=== PATIENT | male | born 1975 | race African-American/Black ===

== ENCOUNTER 2024-08-28 15:09 | Inpatient (IN) | payer SELFPAY ==
[2024-08-28 15:54] LABS: #Basophils 0.04 10x3/uL (0.0-0.2); %Basophils 0.4 % (0.0-1.0); %Eosinophils 1.6 % (0.0-10.0); %Lymphocytes 46.4 % (21.0-51.0); %Monocytes 6.3 % (0.0-10.0); Hemoglobin 14.1 g/dL (14.0-18.0); Mean Corpuscular HGB CONC 33.6 g/dL (32.0-36.0); Mean Corpuscular Hemoglobin 29.7 pg (27.0-31.0); Mean Corpuscular Volume 88.4 fL (78.0-98.0); Mean Platelet Volume 9.1 fL (7.4-10.4); Platelet Count 307 10x3/uL (130-400); RBC Distribution Width 13.1 % (11.5-14.5); Red Blood Cell (RBC) Count 4.75 mill/uL (4.70-6.10)
[2024-08-28 16:12] LABS: ALT (SGPT) 11 U/L (8-55); AST (SGOT) 17 U/L (5-34); Albumin 3.6 g/dL (3.5-5.0); Alkaline Phosphatase 75 U/L (40-110); Anion Gap 14 mmol/L (10-20); BUN (Urea Nitrogen) 7 mg/dL (8.9-20.6); Bilirubin, Total 0.4 mg/dL (0.2-1.2); Calc. Creatinine Clearance 0 mL/min (70-130); Carbon Dioxide 26 mmol/L (22-29); Chloride 99 mmol/L (98-107); Estimated GFR 83; Globulin 3.2 g/dL (2.4-3.5); Glucose 176 mg/dL (70-105); Protein, Total 6.8 g/dL (6.0-8.3); Sodium 135 mmol/L (136-145)
[2024-08-28 16:17] LABS: Troponin I Less than 0.010 ng/mL (< 0.028)
[2024-08-28] MEDS ORDERED: diphenhydrAMINE 50 MG/ML VIAL ONE (17:32)
[2024-08-28] MEDS ORDERED: Metoclopramide HCl 10 MG (2 mL) VIAL ONE (17:32)
[2024-08-28] MEDS ORDERED: Acetaminophen 650 MG Suppository PR PRN (19:58)
[2024-08-28] MEDS ORDERED: Acetaminophen 325 MG TAB PO PRN (19:58)
[2024-08-28] MEDS ORDERED: traMADol HCl 50 MG TAB PO PRN ×2 (19:58)
[2024-08-28] MEDS ORDERED: Ondansetron PF 4 MG/2 ML Vial IVP PRN (19:58)
[2024-08-28] MEDS ORDERED: Ondansetron ODT 4 MG TAB PO PRN (19:58)
[2024-08-28] MEDS ORDERED: Senokot S 8.6-50 MG TAB PO PRN (19:58)
[2024-08-28] MEDS ORDERED: Dextrose 5% in Water 1,000 ML IV PRN (20:14)
[2024-08-28] MEDS ORDERED: Dextrose 50% Abboject 50 ML SYRINGE SLOW IVP PRN (20:14)
[2024-08-28] MEDS ORDERED: Glucagon 1 MG/ML KIT IM PRN (20:14)
[2024-08-28 21:04] LABS: Hemoglobin A1c 9.3 % (4.0-6.0)
[2024-08-28] MEDS: Atorvastatin Calcium 40 MG TAB PO SCH (21:25)
[2024-08-29 01:47] VITALS: BMI 36.7
[2024-08-29 03:47] LABS: #Basophils 0.04 10x3/uL (0.0-0.2); %Basophils 0.3 % (0.0-1.0); %Eosinophils 2.4 % (0.0-10.0); %Lymphocytes 47.7 % (21.0-51.0); %Monocytes 6.7 % (0.0-10.0); %Neutrophils 42.7 % (42.0-75.0); Hematocrit 40.3 % (42.0-52.0); Hemoglobin 13.8 g/dL (14.0-18.0); Mean Corpuscular HGB CONC 34.2 g/dL (32.0-36.0); Mean Corpuscular Hemoglobin 29.2 pg (27.0-31.0); Mean Corpuscular Volume 85.4 fL (78.0-98.0); Mean Platelet Volume 9.6 fL (7.4-10.4); Platelet Count 303 10x3/uL (130-400); RBC Distribution Width 13.1 % (11.5-14.5); Red Blood Cell (RBC) Count 4.72 mill/uL (4.70-6.10)
[2024-08-29 04:11] LABS: Anion Gap 14 mmol/L (10-20); BUN (Urea Nitrogen) 10 mg/dL (8.9-20.6); Calc. Creatinine Clearance 123 mL/min (70-130); Calcium 8.5 mg/dL (7.8-10.44); Carbon Dioxide 22 mmol/L (22-29); Cardiac Risk 7.2 (Less than 4.5); Chloride 102 mmol/L (98-107); Cholesterol 179 mg/dl (< 200 Desired); Estimated GFR 89; Glucose 140 mg/dL (70-105); HDL Cholesterol 25 mg/dL (>60 Neg Risk); Potassium 3.3 mmol/L (3.5-5.1); Sodium 135 mmol/L (136-145); Triglycerides 405 mg/dL (Less than 150)
[2024-08-29] MEDS: Aspirin 81 mg Enteric Coated Tablet PO SCH (08:37)
[2024-08-29] MEDS: Enoxaparin 40 MG (0.4 mL) SYRINGE SC SCH (08:37)
[2024-08-29] MEDS ORDERED: Electrolyte Replacement Protocol 1 EACH FS SCH (09:45)
[2024-08-29] MEDS ORDERED: Electrolyte Replacement Protocol FS PRN (09:45)
[2024-08-29] MEDS: Potassium Chloride 20 MEQ TAB PO SCH ×2 (10:41→21:38)
[2024-08-29 16:00] LABS: Potassium 3.5 mmol/L (3.5-5.1)
[2024-08-29] MEDS: Insulin Glargine 30 UNITS/0.3 ML VIAL SC SCH (21:41)
[2024-08-30 08:25] LABS: INR-International Normal Ratio 1.1; Prothrombin Time 14.4 sec (12.0-14.7)
[2024-08-30 08:33] LABS: D-Dimer Test Less than 0.27 mcg/mL (0.27-0.43)
[2024-08-30] MEDS: Insulin Lispro 100 UNIT/ML 10 ML VIAL SC PRN (17:31)
[2024-08-31] MEDS: Lisinopril 10 MG TAB PO SCH (09:51)
[2024-08-31] MEDS: Pantoprazole DR 40 MG TAB PO SCH (09:52)
[2024-08-31 12:06] LABS: Cardiolipin IgA Ab 2.3 APL-U/mL (<14 Negative); Cardiolipin IgG Ab 1.4 GPL-U/mL (<10 Negative); Cardiolipin IgM Ab Less than 0.9 MPL-U/mL (<10 Negative); EliA APS New Method **** NEW METHOD ****
[2024-08-31 16:18] VITALS: BP 125/75; TEMP 97.9
== END 2024-08-31 19:00 | disposition left against medical advice (07) | DRG 64 ==
LOC: ERS 15:09 → SUATTDRO 15:09 → 2SE 19:25 → OBSVTOIN 08-29 09:20
PROVIDERS: ADMIT Family Medicine; ATTEND Family Medicine
PROC: 4A00X4Z Measurement of Central Nervous Electrical Activity, External Approach (ICD-10-PCS; principal; 2024-08-30)
DX: I63.9 Cerebral infarction, unspecified (principal); G93.6 Cerebral edema; G81.91 Hemiplegia, unspecified affecting right dominant side; I10 Essential (primary) hypertension; K21.9 Gastro-esophageal reflux disease without esophagitis; Z79.82 Long term (current) use of aspirin; E11.65 Type 2 diabetes mellitus with hyperglycemia; Z91.148 Patient's other noncompliance with medication regimen for other reason; Z79.899 Other long term (current) drug therapy; E78.00 Pure hypercholesterolemia, unspecified
CPT/HCPCS: 36415; 36416; 70450; 70551; 80048; 80053; 80061; 83036; 83090; 84484; 85025; 85300; 85303; 85306; 85307; 85598; 85610; 85730; 86147; 93005; 93306; 95700; 95711; 95957; 96372; 96374; 96375; G0378; J1200; J1650; J1815; J2765

== ENCOUNTER 2024-10-22 16:17 | Inpatient (IN) | payer OTHER ==
[2024-10-22] MEDS ORDERED: Propofol 1,000 MG/100 ML VIAL IV ONE (17:15)
[2024-10-22 17:29] LABS: Actual Bicarbonate (HCO3v) 20.2 mEq/L (22-28); Analyzer IN Cardio ER; Base Excess -3.7 mEq/L (-2.0 to +3.0); Calcium, Ionized (venous) 0.99 mmol/L (1.16-1.32); Chloride (VBG) 98 mmol/L (98-106); Hematocrit-VBG 46 % (42.0-52.0); Hemoglobin (Hb) 15.6 g/dL (13.1-17.2); Sodium 133 mmol/L (133-146); pH (venous) 7.396 (7.32-7.43)
[2024-10-22 17:35] LABS: Potassium (VBG) 6.94 mmol/L (3.70-5.30)
[2024-10-22] MEDS ORDERED: LORazepam 2 MG/ML SYR.(CARPUJECT) ONE (17:52)
[2024-10-22] MEDS ORDERED: Fentanyl CADD 100 ML IV SCH (18:00)
[2024-10-22 18:50] LABS: Bacteria/HPF None Seen HPF (None Seen); Bilirubin Negative (Negative); Blood, Urine 3+ (Negative); CAUTI Indications for Culture Alt mental st,lethar; Clarity Clear (Clear); Glucose, Urine (Dipstick) 300 mg/dL (Negative); Ketone, Urine 60 mg/dL (Negative); Leukocyte Negative Leu/uL (Negative); Nitrite Negative (Negative); Protein, Urine (Dipstick) 100 mg/dL (Neg-Trace); Squamous Epithelial None Seen HPF (0-3); Urobilinogen Normal mg/dL (Less than 2); WBC/HPF 0-3 HPF (0-3); pH, Urine 6.5 (5.0-9.0)
[2024-10-22 18:51] LABS: Specific Gravity, Urine Greater than 1.060 (1.002-1.036)
[2024-10-22 18:52] LABS: Urine Culture Reflex No No
[2024-10-22] MEDS ORDERED: Bisacodyl 10 MG SUPP PR PRN (19:03)
[2024-10-22] MEDS ORDERED: hydrALAZINE 20 MG/ML VIAL SLOW IVP PRN (19:03)
[2024-10-22] MEDS ORDERED: Senokot S 8.6-50 MG TAB PER TUBE PRN (19:03)
[2024-10-22] MEDS ORDERED: Communication Order-Pharmacy FS SCH (19:03)
[2024-10-22] MEDS ORDERED: niCARdipine 25 MG in Sodium Chloride 0.9% 250 ML 250 ML IVPB PRN (19:03)
[2024-10-22] MEDS ORDERED: Milk Of Magnesia 30 ML UDCUP PER TUBE PRN (19:14)
[2024-10-22] MEDS ORDERED: Ventilator Sedation Protocol 1 EACH FS SCH (19:26)
[2024-10-22] MEDS ORDERED: DISCONTINUE PREVIOUS NARCOTIC PAIN MEDICATIONS AND BENZODIAZEPINES FS SCH (19:45)
[2024-10-22] MEDS ORDERED: Propofol BOLUS 1,000 MG/100 ML VIAL IV PRN (19:45)
[2024-10-22] MEDS ORDERED: Fentanyl BOLUS 250 ML IVPB PRN (19:45)
[2024-10-22] MEDS ORDERED: Dextrose 50% Abboject 50 ML SYRINGE SLOW IVP PRN (20:12)
[2024-10-22] MEDS ORDERED: Dextrose 5% in Water 1,000 ML IV PRN (20:12)
[2024-10-22] MEDS ORDERED: Glucagon 1 MG/ML KIT IM PRN (20:12)
[2024-10-22] MEDS ORDERED: Electrolyte Replacement Protocol 1 EACH FS SCH (20:13)
[2024-10-22 20:33] LABS: Actual Bicarbonate (HCO3a) 23.8 mEq/L (22-28); Analyzer IN Cardio ER; Base Excess (BEa) -3.3 mEq/L (-2.0 to +3.0); CO2 Tension 49.9 mmHg (35.0-45.0); Calcium, Ionized (arterial) 1.23 mmol/L (1.12-1.30); Carboxyhemoglobin (COHb) 0.4 gm% (0.0-3.0); Hematocrit-ABG 48 % (42.0-52.0); Hemoglobin (Hb) 16.2 g/dL (14.0-18.0); O2 Tension (PaO2), arterial 163.4 mmHg (80.0-100.0); Potassium - ABG Lab 4.76 mmol/L (3.70-5.30); pH, Arterial 7.296 (7.35-7.45)
[2024-10-22 20:34] LABS: Puncture Site Left Radial artery
[2024-10-22 20:35] LABS: ALV-art Gradient 130.725 mmHg (0-20)
[2024-10-22] MEDS: Rocuronium Bromide 10 MG/ML (10ML VIAL) IVP SCH (21:15)
[2024-10-22] MEDS: Etomidate 40 MG (20 mL) VIAL IVP SCH (21:15)
[2024-10-22] MEDS: Sodium Chloride 0.9% 1,000 ML IV SCH (21:58)
[2024-10-22] MEDS: Famotidine/PF 20 mg/2ml Vial SLOW IVP SCH (22:06)
[2024-10-22] MEDS: Atorvastatin Calcium 40 MG TAB PER TUBE SCH (22:06)
[2024-10-23] MEDS: Propofol 1,000 MG/100 ML VIAL IV PRN (04:34)
[2024-10-23 08:02] LABS: Actual Bicarbonate (HCO3a) 21.5 mEq/L (22-28); Base Excess (BEa) -0.8 mEq/L (-2.0 to +3.0); CO2 Tension 29.7 mmHg (35.0-45.0); Calcium, Ionized (arterial) 1.17 mmol/L (1.12-1.30); Carboxyhemoglobin (COHb) 0.6 gm% (0.0-3.0); Hematocrit-ABG 45 % (42.0-52.0); Hemoglobin (Hb) 15.3 g/dL (14.0-18.0); O2 Tension (PaO2), arterial 125.6 mmHg (80.0-100.0); Potassium - ABG Lab 3.41 mmol/L (3.70-5.30); pH, Arterial 7.478 (7.35-7.45)
[2024-10-23 08:03] LABS: Puncture Site Right Radial artery
[2024-10-23 08:04] LABS: ALV-art Gradient 122.475 mmHg (0-20)
[2024-10-23] MEDS ORDERED: Aspirin 300 MG Suppository PR SCH (09:00)
[2024-10-23] MEDS: Fentanyl CADD 100 ML IV SCH (09:00)
[2024-10-23] MEDS: Lorazepam 2 MG/ML VIAL SLOW IVP PRN (09:25)
[2024-10-23 16:44] LABS: #Basophils 0.03 10x3/uL (0.0-0.2); %Basophils 0.3 % (0.0-1.0); %Eosinophils 0.9 % (0.0-10.0); %Lymphocytes 26.4 % (21.0-51.0); %Monocytes 9.5 % (0.0-10.0); %Neutrophils 62.7 % (42.0-75.0); Hematocrit 46.5 % (42.0-52.0); Hemoglobin 15.8 g/dL (14.0-18.0); Mean Corpuscular Hemoglobin 29.2 pg (27.0-31.0); Mean Platelet Volume 9.1 fL (7.4-10.4); Platelet Count 277 10x3/uL (130-400); RBC Distribution Width 13.4 % (11.5-14.5); Red Blood Cell (RBC) Count 5.41 mill/uL (4.70-6.10)
[2024-10-23 17:09] LABS: ALT (SGPT) 106 U/L (8-55); AST (SGOT) 241 U/L (5-34); Albumin 3.8 g/dL (3.5-5.0); Alkaline Phosphatase 84 U/L (40-110); Anion Gap 18 mmol/L (10-20); BUN (Urea Nitrogen) 15 mg/dL (8.9-20.6); Bilirubin, Total 0.4 mg/dL (0.2-1.2); Calc. Creatinine Clearance 90 mL/min (70-130); Calcium 9.5 mg/dL (7.8-10.44); Carbon Dioxide 22 mmol/L (22-29); Cardiac Risk 4.1 (Less than 4.5); Chloride 101 mmol/L (98-107); Cholesterol 134 mg/dl (< 200 Desired); Estimated GFR 67; Globulin 3.7 g/dL (2.4-3.5); Glucose 147 mg/dL (70-105); HDL Cholesterol 33 mg/dL (>60 Neg Risk); LDL Cholesterol, Calculated 46 mg/dL; Potassium 3.4 mmol/L (3.5-5.1); Protein, Total 7.5 g/dL (6.0-8.3); Sodium 138 mmol/L (136-145); Triglycerides 275 mg/dL (Less than 150)
[2024-10-23 17:16] LABS: Lactic Acid 4.04 mmol/L (0.5-2.2)
[2024-10-23 17:28] LABS: ALT (SGPT) 109 U/L (8-55); AST (SGOT) 263 U/L (5-34); Albumin 4.2 g/dL (3.5-5.0); Alkaline Phosphatase 95 U/L (40-110); Anion Gap 22 mmol/L (10-20); BUN (Urea Nitrogen) 15 mg/dL (8.9-20.6); Bilirubin, Total 0.4 mg/dL (0.2-1.2); Calc. Creatinine Clearance 97 mL/min (70-130); Calcium 9.7 mg/dL (7.8-10.44); Carbon Dioxide 20 mmol/L (22-29); Chloride 100 mmol/L (98-107); Estimated GFR 73; Globulin 4.1 g/dL (2.4-3.5); Glucose 143 mg/dL (70-105); Potassium 3.6 mmol/L (3.5-5.1); Protein, Total 8.3 g/dL (6.0-8.3); Sodium 138 mmol/L (136-145)
[2024-10-23 17:30] LABS: Troponin I Less than 0.010 ng/mL (< 0.028)
[2024-10-23 18:12] LABS: Prothrombin Time 13.6 sec (12.0-14.7)
[2024-10-23 18:14] LABS: PTT 21.7 sec (22.9-36.1)
[2024-10-23] MEDS: Potassium Chloride 20 MEQ in Premix 1 BAG IVPB SCH (21:06)
[2024-10-23] MEDS: Aspirin 300 MG Suppository PR SCH (21:07)
[2024-10-23] MEDS: Enoxaparin 40 MG (0.4 mL) SYRINGE SC SCH (21:07)
[2024-10-23] MEDS: Acetaminophen 650 MG Suppository PR PRN (21:07)
[2024-10-24 05:28] LABS: #Basophils 0.06 10x3/uL (0.0-0.2); %Basophils 0.5 % (0.0-1.0); %Eosinophils 0.4 % (0.0-10.0); %Lymphocytes 24.8 % (21.0-51.0); %Monocytes 18.9 % (0.0-10.0); %Neutrophils 54.9 % (42.0-75.0); Hematocrit 44.4 % (42.0-52.0); Hemoglobin 14.6 g/dL (14.0-18.0); Mean Corpuscular HGB CONC 32.9 g/dL (32.0-36.0); Mean Corpuscular Hemoglobin 29.4 pg (27.0-31.0); Mean Corpuscular Volume 89.3 fL (78.0-98.0); Mean Platelet Volume 9.8 fL (7.4-10.4); Platelet Count 210 10x3/uL (130-400); RBC Distribution Width 13.5 % (11.5-14.5); Red Blood Cell (RBC) Count 4.97 mill/uL (4.70-6.10)
[2024-10-24 06:34] LABS: ALT (SGPT) 79 U/L (8-55); AST (SGOT) 155 U/L (5-34); Albumin 3.5 g/dL (3.5-5.0); Anion Gap 19 mmol/L (10-20); BUN (Urea Nitrogen) 16 mg/dL (8.9-20.6); Bilirubin, Total 0.5 mg/dL (0.2-1.2); Calc. Creatinine Clearance 87 mL/min (70-130); Calcium 9.4 mg/dL (7.8-10.44); Carbon Dioxide 21 mmol/L (22-29); Chloride 103 mmol/L (98-107); Estimated GFR 67; Globulin 3.7 g/dL (2.4-3.5); Glucose 134 mg/dL (70-105); Potassium 4.3 mmol/L (3.5-5.1); Protein, Total 7.2 g/dL (6.0-8.3); Sodium 139 mmol/L (136-145)
[2024-10-24 07:20] LABS: Alkaline Phosphatase 84 U/L (40-110)
[2024-10-24] MEDS: Acetaminophen 325 MG TAB PER TUBE PRN (14:59)
[2024-10-24] MEDS: Hyaluronidase, Human Recomb. 150 UNITS/ML VIAL SC SCH (17:31)
[2024-10-24] MEDS: Lactated Ringer's 1,000 ML IV SCH (18:08)
[2024-10-24] MEDS: Insulin Lispro 100 UNIT/ML 10 ML VIAL SC PRN (23:00)
[2024-10-25] MEDS: Scopolamine 1 mg/72 hour Patch TD SCH (05:12)
[2024-10-25 05:23] LABS: Hemoglobin A1c 8.3 % (4.0-6.0)
[2024-10-25 05:38] LABS: Anion Gap 15 mmol/L (10-20); BUN (Urea Nitrogen) 15 mg/dL (8.9-20.6); Calc. Creatinine Clearance 105 mL/min (70-130); Calcium 9.4 mg/dL (7.8-10.44); Carbon Dioxide 25 mmol/L (22-29); Chloride 100 mmol/L (98-107); Estimated GFR 84; Glucose 239 mg/dL (70-105); Potassium 4.1 mmol/L (3.5-5.1); Sodium 136 mmol/L (136-145)
[2024-10-25 05:47] LABS: #Basophils 0.04 10x3/uL (0.0-0.2); %Basophils 0.3 % (0.0-1.0); %Eosinophils 0.4 % (0.0-10.0); %Lymphocytes 13.6 % (21.0-51.0); %Monocytes 10.4 % (0.0-10.0); %Neutrophils 74.9 % (42.0-75.0); Hematocrit 40.2 % (42.0-52.0); Hemoglobin 13.8 g/dL (14.0-18.0); Mean Corpuscular HGB CONC 34.3 g/dL (32.0-36.0); Mean Corpuscular Hemoglobin 29.7 pg (27.0-31.0); Mean Corpuscular Volume 86.6 fL (78.0-98.0); Mean Platelet Volume 10.9 fL (7.4-10.4); Platelet Count 281 10x3/uL (130-400); RBC Distribution Width 13.5 % (11.5-14.5); Red Blood Cell (RBC) Count 4.64 mill/uL (4.70-6.10)
[2024-10-25] MEDS ORDERED: Electrolyte Replacement Protocol FS PRN (07:30)
[2024-10-25] MEDS: Insulin Glargine 30 UNITS/0.3 ML VIAL SC SCH (09:17)
[2024-10-26] MEDS: Vecuronium 10 MG VIAL IVP SCH (00:19)
[2024-10-26 04:56] LABS: #Basophils 0.03 10x3/uL (0.0-0.2); %Basophils 0.2 % (0.0-1.0); %Eosinophils 1.2 % (0.0-10.0); %Lymphocytes 14.1 % (21.0-51.0); %Monocytes 11.2 % (0.0-10.0); %Neutrophils 72.8 % (42.0-75.0); Hematocrit 38.1 % (42.0-52.0); Hemoglobin 12.9 g/dL (14.0-18.0); Mean Corpuscular HGB CONC 33.9 g/dL (32.0-36.0); Mean Corpuscular Hemoglobin 29.5 pg (27.0-31.0); Mean Corpuscular Volume 87.2 fL (78.0-98.0); Mean Platelet Volume 11.1 fL (7.4-10.4); Platelet Count 292 10x3/uL (130-400); RBC Distribution Width 13.4 % (11.5-14.5); Red Blood Cell (RBC) Count 4.37 mill/uL (4.70-6.10)
[2024-10-26 05:10] LABS: Anion Gap 14 mmol/L (10-20); BUN (Urea Nitrogen) 11 mg/dL (8.9-20.6); Calc. Creatinine Clearance 113 mL/min (70-130); Calcium 9.6 mg/dL (7.8-10.44); Carbon Dioxide 26 mmol/L (22-29); Chloride 99 mmol/L (98-107); Estimated GFR 91; Glucose 210 mg/dL (70-105); Potassium 4.1 mmol/L (3.5-5.1); Sodium 135 mmol/L (136-145)
[2024-10-26] MEDS: Morphine 2 MG/ML VIAL SLOW IVP PRN (07:37)
[2024-10-26] MEDS: Vecuronium 10 MG VIAL ONE (12:10)
[2024-10-26] MEDS: Vecuronium 10 MG VIAL IV SCH (12:10)
[2024-10-26] MEDS: Vecuronium 10 MG VIAL IV PRN (16:49)
[2024-10-26] MEDS: Sterile Water 10 ML ONE (22:31)
[2024-10-27] MEDS: Water For Inject, Bacteriostat 30 ML ONE (03:32)
[2024-10-27 04:22] LABS: #Basophils 0.04 10x3/uL (0.0-0.2); %Basophils 0.3 % (0.0-1.0); %Eosinophils 2.7 % (0.0-10.0); %Lymphocytes 17.7 % (21.0-51.0); %Neutrophils 65.3 % (42.0-75.0); Hematocrit 39.9 % (42.0-52.0); Hemoglobin 13.3 g/dL (14.0-18.0); Mean Corpuscular HGB CONC 33.3 g/dL (32.0-36.0); Mean Corpuscular Hemoglobin 28.9 pg (27.0-31.0); Mean Corpuscular Volume 86.7 fL (78.0-98.0); Mean Platelet Volume 9.9 fL (7.4-10.4); Platelet Count 315 10x3/uL (130-400); RBC Distribution Width 13.4 % (11.5-14.5)
[2024-10-27 04:54] LABS: Anion Gap 16 mmol/L (10-20); BUN (Urea Nitrogen) 16 mg/dL (8.9-20.6); Calc. Creatinine Clearance 147 mL/min (70-130); Calcium 9.1 mg/dL (7.8-10.44); Carbon Dioxide 26 mmol/L (22-29); Chloride 98 mmol/L (98-107); Estimated GFR 109; Glucose 141 mg/dL (70-105); Sodium 136 mmol/L (136-145)
[2024-10-27] MEDS: Ondansetron PF 4 MG/2 ML Vial IVP PRN (05:41)
[2024-10-27] MEDS: Metoclopramide HCl 10 MG (2 mL) VIAL IVP SCH (08:23)
[2024-10-27] MEDS: Aspirin 325 MG TAB PER TUBE SCH (21:18)
[2024-10-28 04:59] LABS: #Basophils 0.04 10x3/uL (0.0-0.2); %Basophils 0.3 % (0.0-1.0); %Eosinophils 3.7 % (0.0-10.0); %Lymphocytes 18.7 % (21.0-51.0); %Neutrophils 62.7 % (42.0-75.0); Hematocrit 35.6 % (42.0-52.0); Hemoglobin 11.7 g/dL (14.0-18.0); Mean Corpuscular HGB CONC 32.9 g/dL (32.0-36.0); Mean Corpuscular Volume 88.1 fL (78.0-98.0); Mean Platelet Volume 10.1 fL (7.4-10.4); Platelet Count 335 10x3/uL (130-400); RBC Distribution Width 13.5 % (11.5-14.5); Red Blood Cell (RBC) Count 4.04 mill/uL (4.70-6.10)
[2024-10-28 05:25] LABS: Anion Gap 13 mmol/L (10-20); BUN (Urea Nitrogen) 16 mg/dL (8.9-20.6); Calc. Creatinine Clearance 137 mL/min (70-130); Calcium 9.3 mg/dL (7.8-10.44); Carbon Dioxide 29 mmol/L (22-29); Chloride 97 mmol/L (98-107); Estimated GFR 108; Glucose 158 mg/dL (70-105); Potassium 4.1 mmol/L (3.5-5.1); Sodium 135 mmol/L (136-145)
[2024-10-28] MEDS: Cefepime 1 GM in Sodium Chloride 0.9% 100 ML IVPB SCH (09:26)
[2024-10-28] MEDS: Vancomycin (BATCH) 2 GM in Premix 1 BAG IVPB SCH (10:03)
[2024-10-28] MEDS ORDERED: Cefepime 2 GM in Sodium Chloride 0.9% 100 ML IVPB SCH (17:00)
[2024-10-28] MEDS: Cefepime 2 GM in Sodium Chloride 0.9% 100 ML IVPB SCH (20:25)
[2024-10-28] MEDS ORDERED: Vancomycin (BATCH) 300 ML IVPB SCH (22:00)
[2024-10-28] MEDS: Vancomycin 1.5 GRAM/300 ML BAG 1.5 GM in Premix 1 BAG IVPB SCH (22:40)
[2024-10-29 04:30] LABS: #Basophils 0.04 10x3/uL (0.0-0.2); %Basophils 0.3 % (0.0-1.0); %Eosinophils 3.5 % (0.0-10.0); %Lymphocytes 14.2 % (21.0-51.0); %Monocytes 11.1 % (0.0-10.0); %Neutrophils 69.7 % (42.0-75.0); Hematocrit 34.7 % (42.0-52.0); Hemoglobin 11.6 g/dL (14.0-18.0); Mean Corpuscular HGB CONC 33.4 g/dL (32.0-36.0); Mean Corpuscular Hemoglobin 29.2 pg (27.0-31.0); Mean Corpuscular Volume 87.4 fL (78.0-98.0); Mean Platelet Volume 10.4 fL (7.4-10.4); Platelet Count 360 10x3/uL (130-400); RBC Distribution Width 13.3 % (11.5-14.5); Red Blood Cell (RBC) Count 3.97 mill/uL (4.70-6.10)
[2024-10-29 04:48] LABS: Vancomycin, Random 19.6 ug/mL (See Comment)
[2024-10-29 04:51] LABS: Anion Gap 16 mmol/L (10-20); BUN (Urea Nitrogen) 14 mg/dL (8.9-20.6); Calc. Creatinine Clearance 160 mL/min (70-130); Calcium 9.1 mg/dL (7.8-10.44); Carbon Dioxide 26 mmol/L (22-29); Chloride 99 mmol/L (98-107); Estimated GFR 113; Glucose 179 mg/dL (70-105); Potassium 3.9 mmol/L (3.5-5.1); Sodium 137 mmol/L (136-145)
[2024-10-29] MEDS: Vancomycin (BATCH) 1.75 GM in Premix 1 BAG IVPB SCH (09:26)
[2024-10-30 04:05] LABS: #Basophils 0.04 10x3/uL (0.0-0.2); %Basophils 0.3 % (0.0-1.0); %Eosinophils 3.6 % (0.0-10.0); %Lymphocytes 21.5 % (21.0-51.0); %Monocytes 11.3 % (0.0-10.0); %Neutrophils 61.1 % (42.0-75.0); Hematocrit 32.4 % (42.0-52.0); Hemoglobin 10.8 g/dL (14.0-18.0); Mean Corpuscular HGB CONC 33.3 g/dL (32.0-36.0); Mean Corpuscular Hemoglobin 28.9 pg (27.0-31.0); Mean Corpuscular Volume 86.6 fL (78.0-98.0); Mean Platelet Volume 10.5 fL (7.4-10.4); Platelet Count 404 10x3/uL (130-400); RBC Distribution Width 13.4 % (11.5-14.5); Red Blood Cell (RBC) Count 3.74 mill/uL (4.70-6.10)
[2024-10-30 04:35] LABS: Anion Gap 15 mmol/L (10-20); BUN (Urea Nitrogen) 15 mg/dL (8.9-20.6); Calc. Creatinine Clearance 144 mL/min (70-130); Calcium 8.6 mg/dL (7.8-10.44); Carbon Dioxide 24 mmol/L (22-29); Chloride 101 mmol/L (98-107); Estimated GFR 109; Glucose 175 mg/dL (70-105); Potassium 3.8 mmol/L (3.5-5.1); Sodium 136 mmol/L (136-145)
[2024-10-30] MEDS: Dexmedetomidine In 0.9 % NaCl 100 ML IV SCH (14:03)
[2024-10-31 05:11] LABS: Hematocrit 33.6 % (42.0-52.0); Hemoglobin 11.1 g/dL (14.0-18.0); Mean Corpuscular Hemoglobin 28.7 pg (27.0-31.0); Mean Corpuscular Volume 86.8 fL (78.0-98.0); Platelet Count 320 10x3/uL (130-400); RBC Distribution Width 13.5 % (11.5-14.5); Red Blood Cell (RBC) Count 3.87 mill/uL (4.70-6.10)
[2024-10-31 05:19] LABS: Vancomycin, Random 26.3 ug/mL (See Comment)
[2024-10-31 05:21] LABS: Anion Gap 14 mmol/L (10-20); BUN (Urea Nitrogen) 18 mg/dL (8.9-20.6); Calc. Creatinine Clearance 147 mL/min (70-130); Calcium 8.6 mg/dL (7.8-10.44); Carbon Dioxide 24 mmol/L (22-29); Chloride 102 mmol/L (98-107); Estimated GFR 109; Glucose 197 mg/dL (70-105); Sodium 136 mmol/L (136-145)
[2024-10-31 05:59] LABS: Band 7 % (5-11); Eosinophils 6 % (0-10); Lymphocytes 12 % (21-51); Metamyelocyte 3 % (0-0); Monocytes 6 % (0-10); Neutrophil 60 % (42-75); Platelet Adequacy Comment Platelets Normal; Polychromasia SLIGHT = 2-3 cells HPF (0-2); Reactive Lymphocytes 5 % (0-10)
[2024-10-31] MEDS: Glycopyrrolate 0.4 MG/ 2 ML VIAL SLOW IVP SCH (10:08)
[2024-10-31] MEDS: Glycopyrrolate 0.2 MG/ML 5 ML SYRINGE SLOW IVP SCH (10:16)
[2024-10-31] MEDS: Vancomycin (BATCH) 1.5 GM in Premix 1 BAG IVPB SCH (22:12)
[2024-11-01 04:41] LABS: Hemoglobin 10.4 g/dL (14.0-18.0); Mean Corpuscular HGB CONC 33.5 g/dL (32.0-36.0); Mean Corpuscular Hemoglobin 29.4 pg (27.0-31.0); Mean Corpuscular Volume 87.6 fL (78.0-98.0); Mean Platelet Volume 10.7 fL (7.4-10.4); Platelet Count 482 10x3/uL (130-400); RBC Distribution Width 13.2 % (11.5-14.5); Red Blood Cell (RBC) Count 3.54 mill/uL (4.70-6.10)
[2024-11-01 04:51] LABS: Anion Gap 15 mmol/L (10-20); BUN (Urea Nitrogen) 20 mg/dL (8.9-20.6); Calc. Creatinine Clearance 151 mL/min (70-130); Calcium 8.4 mg/dL (7.8-10.44); Carbon Dioxide 23 mmol/L (22-29); Chloride 102 mmol/L (98-107); Estimated GFR 110; Glucose 197 mg/dL (70-105); Potassium 3.9 mmol/L (3.5-5.1); Sodium 136 mmol/L (136-145)
[2024-11-01 04:53] LABS: ALT (SGPT) 51 U/L (8-55); AST (SGOT) 50 U/L (5-34); Alkaline Phosphatase 71 U/L (40-110); Bilirubin, Direct 0.1 mg/dL (0.1-0.3); Bilirubin, Total 0.2 mg/dL (0.2-1.2); Protein, Total 6.2 g/dL (6.0-8.3)
[2024-11-01 05:12] LABS: Band 10 % (5-11); Eosinophils 3 % (0-10); Hypochromia SLIGHT = 6-15 cells HPF (0-5); Lymphocytes 18 % (21-51); Monocytes 9 % (0-10); Neutrophil 57 % (42-75); Platelet Adequacy Comment Platelets Increased; Polychromasia SLIGHT = 2-3 cells HPF (0-2); Reactive Lymphocytes 2 % (0-10)
[2024-11-02 05:08] LABS: Hematocrit 29.5 % (42.0-52.0); Mean Corpuscular HGB CONC 33.9 g/dL (32.0-36.0); Mean Corpuscular Hemoglobin 29.2 pg (27.0-31.0); Mean Corpuscular Volume 86.3 fL (78.0-98.0); Mean Platelet Volume 10.6 fL (7.4-10.4); Platelet Count 473 10x3/uL (130-400); RBC Distribution Width 13.2 % (11.5-14.5); Red Blood Cell (RBC) Count 3.42 mill/uL (4.70-6.10)
[2024-11-02 05:37] LABS: ALT (SGPT) 70 U/L (8-55); AST (SGOT) 56 U/L (5-34); Alkaline Phosphatase 69 U/L (40-110); Band 2 % (5-11); Bilirubin, Direct 0.2 mg/dL (0.1-0.3); Bilirubin, Total 0.3 mg/dL (0.2-1.2); Burr Cells SLIGHT = 2-5 cells HPF (0-1); Eosinophils 2 % (0-10); Lymphocytes 30 % (21-51); Monocytes 8 % (0-10); Neutrophil 56 % (42-75); Platelet Adequacy Comment Platelets Normal; Protein, Total 6.3 g/dL (6.0-8.3); Reactive Lymphocytes 1 % (0-10)
[2024-11-02 05:46] LABS: Anion Gap 12 mmol/L (10-20); BUN (Urea Nitrogen) 15 mg/dL (8.9-20.6); Calc. Creatinine Clearance 177 mL/min (70-130); Calcium 8.3 mg/dL (7.8-10.44); Carbon Dioxide 26 mmol/L (22-29); Chloride 99 mmol/L (98-107); Estimated GFR 113; Glucose 176 mg/dL (70-105); Potassium 3.8 mmol/L (3.5-5.1); Sodium 133 mmol/L (136-145)
[2024-11-02] MEDS: Cefepime 2 GM in Sodium Chloride 0.9% 100 ML IVPB SCH (10:36)
[2024-11-03 05:56] LABS: Anion Gap 13 mmol/L (10-20); BUN (Urea Nitrogen) 19 mg/dL (8.9-20.6); Calc. Creatinine Clearance 165 mL/min (70-130); Calcium 8.4 mg/dL (7.8-10.44); Carbon Dioxide 24 mmol/L (22-29); Chloride 100 mmol/L (98-107); Estimated GFR 111; Glucose 172 mg/dL (70-105); Potassium 4.1 mmol/L (3.5-5.1); Sodium 133 mmol/L (136-145)
[2024-11-03 06:00] LABS: ALT (SGPT) 139 U/L (8-55); AST (SGOT) 114 U/L (5-34); Albumin 2.1 g/dL (3.5-5.0); Alkaline Phosphatase 73 U/L (40-110); Bilirubin, Direct 0.2 mg/dL (0.1-0.3); Bilirubin, Total 0.2 mg/dL (0.2-1.2); Protein, Total 6.5 g/dL (6.0-8.3)
[2024-11-03 06:15] LABS: #Basophils 0.06 10x3/uL (0.0-0.2); %Basophils 0.6 % (0.0-1.0); %Eosinophils 2.4 % (0.0-10.0); %Lymphocytes 22.5 % (21.0-51.0); %Monocytes 5.9 % (0.0-10.0); Hematocrit 34.8 % (42.0-52.0); Hemoglobin 11.5 g/dL (14.0-18.0); Mean Corpuscular Hemoglobin 28.4 pg (27.0-31.0); Mean Corpuscular Volume 85.9 fL (78.0-98.0); Mean Platelet Volume 10.6 fL (7.4-10.4); Platelet Count 518 10x3/uL (130-400); RBC Distribution Width 13.1 % (11.5-14.5); Red Blood Cell (RBC) Count 4.05 mill/uL (4.70-6.10)
[2024-11-04 04:04] LABS: #Basophils 0.06 10x3/uL (0.0-0.2); %Basophils 0.5 % (0.0-1.0); %Eosinophils 2.7 % (0.0-10.0); %Lymphocytes 20.9 % (21.0-51.0); %Monocytes 5.9 % (0.0-10.0); %Neutrophils 68.6 % (42.0-75.0); Hematocrit 31.7 % (42.0-52.0); Hemoglobin 10.6 g/dL (14.0-18.0); Mean Corpuscular HGB CONC 33.4 g/dL (32.0-36.0); Mean Corpuscular Hemoglobin 29.4 pg (27.0-31.0); Mean Corpuscular Volume 88.1 fL (78.0-98.0); Mean Platelet Volume 9.6 fL (7.4-10.4); Platelet Count 586 10x3/uL (130-400); RBC Distribution Width 13.1 % (11.5-14.5)
[2024-11-04 04:26] LABS: ALT (SGPT) 121 U/L (8-55); AST (SGOT) 70 U/L (5-34); Albumin 2.2 g/dL (3.5-5.0); Alkaline Phosphatase 74 U/L (40-110); Anion Gap 13 mmol/L (10-20); BUN (Urea Nitrogen) 17 mg/dL (8.9-20.6); Bilirubin, Direct 0.2 mg/dL (0.1-0.3); Bilirubin, Total 0.3 mg/dL (0.2-1.2); Calc. Creatinine Clearance 167 mL/min (70-130); Calcium 8.4 mg/dL (7.8-10.44); Carbon Dioxide 23 mmol/L (22-29); Chloride 101 mmol/L (98-107); Estimated GFR 111; Glucose 260 mg/dL (70-105); Protein, Total 6.8 g/dL (6.0-8.3); Sodium 133 mmol/L (136-145)
[2024-11-04] MEDS: Insulin Lispro 100 UNIT/ML 10 ML VIAL SC PRN (09:46)
[2024-11-05 04:44] LABS: #Basophils 0.06 10x3/uL (0.0-0.2); %Basophils 0.4 % (0.0-1.0); %Eosinophils 2.6 % (0.0-10.0); %Lymphocytes 20.5 % (21.0-51.0); %Monocytes 5.4 % (0.0-10.0); Hemoglobin 10.9 g/dL (14.0-18.0); Mean Corpuscular Volume 87.8 fL (78.0-98.0); Mean Platelet Volume 9.7 fL (7.4-10.4); Platelet Count 623 10x3/uL (130-400); RBC Distribution Width 13.2 % (11.5-14.5); Red Blood Cell (RBC) Count 3.76 mill/uL (4.70-6.10)
[2024-11-05 05:07] LABS: Anion Gap 13 mmol/L (10-20); BUN (Urea Nitrogen) 17 mg/dL (8.9-20.6); Calc. Creatinine Clearance 156 mL/min (70-130); Carbon Dioxide 26 mmol/L (22-29); Chloride 98 mmol/L (98-107); Estimated GFR 109; Glucose 164 mg/dL (70-105); Potassium 4.4 mmol/L (3.5-5.1); Sodium 133 mmol/L (136-145)
[2024-11-05 05:13] LABS: ALT (SGPT) 118 U/L (8-55); AST (SGOT) 63 U/L (5-34); Albumin 2.3 g/dL (3.5-5.0); Alkaline Phosphatase 76 U/L (40-110); Bilirubin, Direct 0.2 mg/dL (0.1-0.3); Bilirubin, Total 0.3 mg/dL (0.2-1.2); Protein, Total 7.1 g/dL (6.0-8.3)
[2024-11-06 04:43] VITALS: BMI 29.7
[2024-11-06 04:49] LABS: #Basophils 0.07 10x3/uL (0.0-0.2); %Basophils 0.5 % (0.0-1.0); %Eosinophils 1.6 % (0.0-10.0); %Lymphocytes 22.9 % (21.0-51.0); %Monocytes 5.8 % (0.0-10.0); %Neutrophils 68.5 % (42.0-75.0); Hematocrit 32.1 % (42.0-52.0); Hemoglobin 11.3 g/dL (14.0-18.0); Mean Corpuscular HGB CONC 35.2 g/dL (32.0-36.0); Mean Corpuscular Hemoglobin 30.3 pg (27.0-31.0); Mean Corpuscular Volume 86.1 fL (78.0-98.0); Mean Platelet Volume 9.4 fL (7.4-10.4); Platelet Count 685 10x3/uL (130-400); RBC Distribution Width 13.2 % (11.5-14.5); Red Blood Cell (RBC) Count 3.73 mill/uL (4.70-6.10)
[2024-11-06 05:10] LABS: Anion Gap 13 mmol/L (10-20); BUN (Urea Nitrogen) 19 mg/dL (8.9-20.6); Calc. Creatinine Clearance 141 mL/min (70-130); Calcium 9.3 mg/dL (7.8-10.44); Carbon Dioxide 26 mmol/L (22-29); Chloride 97 mmol/L (98-107); Estimated GFR 107; Glucose 171 mg/dL (70-105); Potassium 4.4 mmol/L (3.5-5.1); Sodium 132 mmol/L (136-145)
[2024-11-06 05:15] LABS: ALT (SGPT) 94 U/L (8-55); AST (SGOT) 47 U/L (5-34); Albumin 2.5 g/dL (3.5-5.0); Alkaline Phosphatase 82 U/L (40-110); Bilirubin, Direct 0.2 mg/dL (0.1-0.3); Bilirubin, Total 0.3 mg/dL (0.2-1.2); Protein, Total 7.5 g/dL (6.0-8.3)
[2024-11-06] MEDS: Scopolamine 1 mg/72 hour Patch TD SCH (09:58)
[2024-11-06] MEDS ORDERED: Midazolam HCl 2 mg/2 ml Vial ONE ×2 (09:58→11:10)
[2024-11-06] MEDS ORDERED: Rocuronium Bromide 10 MG/ML (10ML VIAL) ONE ×3 (09:58→12:02)
[2024-11-06] MEDS ORDERED: SUGAMMADEX SODIUM 200 MG/2 ML VIAL ONE (10:02)
[2024-11-06] MEDS ORDERED: Bupivacaine PF 0.5% 30 ML VIAL ONE (10:20)
[2024-11-06] MEDS ORDERED: PHENYLEPHRINE-NS 100 MCG/ML 10 ML SYRINGE ONE (10:59)
[2024-11-06] MEDS ORDERED: Dexamethasone 20 MG/5 ML VIAL ONE (11:02)
[2024-11-06] MEDS ORDERED: fentaNYL 50 mcg/mL 1 mL Vial ONE ×3 (11:08→11:44)
[2024-11-06] MEDS: Labetalol HCl 100 MG/20 ML VIAL SLOW IVP PRN (12:46)
[2024-11-06] MEDS: Doxycycline 100 MG in Sodium Chloride 0.9% 100 ML IVPB SCH (18:19)
[2024-11-07 05:04] LABS: #Basophils 0.04 10x3/uL (0.0-0.2); %Basophils 0.2 % (0.0-1.0); %Eosinophils 0.6 % (0.0-10.0); %Lymphocytes 21.1 % (21.0-51.0); %Monocytes 6.5 % (0.0-10.0); Hemoglobin 11.7 g/dL (14.0-18.0); Mean Corpuscular HGB CONC 33.4 g/dL (32.0-36.0); Mean Corpuscular Volume 86.6 fL (78.0-98.0); Mean Platelet Volume 9.5 fL (7.4-10.4); Platelet Count 600 10x3/uL (130-400); RBC Distribution Width 13.2 % (11.5-14.5); Red Blood Cell (RBC) Count 4.04 mill/uL (4.70-6.10)
[2024-11-07 05:22] LABS: Anion Gap 15 mmol/L (10-20); BUN (Urea Nitrogen) 18 mg/dL (8.9-20.6); Calc. Creatinine Clearance 148 mL/min (70-130); Calcium 9.2 mg/dL (7.8-10.44); Carbon Dioxide 22 mmol/L (22-29); Chloride 97 mmol/L (98-107); Estimated GFR 109; Glucose 180 mg/dL (70-105); Potassium 5.4 mmol/L (3.5-5.1); Sodium 129 mmol/L (136-145)
[2024-11-07 05:32] LABS: ALT (SGPT) 70 U/L (8-55); AST (SGOT) 39 U/L (5-34); Albumin 2.6 g/dL (3.5-5.0); Alkaline Phosphatase 85 U/L (40-110); Bilirubin, Direct 0.2 mg/dL (0.1-0.3); Bilirubin, Total 0.5 mg/dL (0.2-1.2); Protein, Total 7.9 g/dL (6.0-8.3)
[2024-11-07 14:42] VITALS: BMI 29.4
[2024-11-07] MEDS: Enoxaparin 40 MG (0.4 mL) SYRINGE SC SCH (19:32)
[2024-11-08 03:34] LABS: #Basophils 0.07 10x3/uL (0.0-0.2); %Basophils 0.5 % (0.0-1.0); %Eosinophils 1.6 % (0.0-10.0); %Lymphocytes 24.5 % (21.0-51.0); %Monocytes 7.2 % (0.0-10.0); %Neutrophils 65.5 % (42.0-75.0); Hematocrit 34.3 % (42.0-52.0); Hemoglobin 11.4 g/dL (14.0-18.0); Mean Corpuscular HGB CONC 33.2 g/dL (32.0-36.0); Mean Corpuscular Hemoglobin 28.9 pg (27.0-31.0); Mean Corpuscular Volume 86.8 fL (78.0-98.0); Mean Platelet Volume 8.9 fL (7.4-10.4); Platelet Count 663 10x3/uL (130-400); RBC Distribution Width 13.2 % (11.5-14.5); Red Blood Cell (RBC) Count 3.95 mill/uL (4.70-6.10)
[2024-11-08 03:56] LABS: Anion Gap 12 mmol/L (10-20); BUN (Urea Nitrogen) 20 mg/dL (8.9-20.6); Calc. Creatinine Clearance 150 mL/min (70-130); Calcium 9.4 mg/dL (7.8-10.44); Carbon Dioxide 25 mmol/L (22-29); Chloride 96 mmol/L (98-107); Estimated GFR 110; Glucose 182 mg/dL (70-105); Potassium 4.4 mmol/L (3.5-5.1); Sodium 129 mmol/L (136-145)
[2024-11-08 14:31] VITALS: BP 112/78
[2024-11-09 06:56] LABS: #Basophils 0.05 10x3/uL (0.0-0.2); %Basophils 0.4 % (0.0-1.0); %Eosinophils 2.5 % (0.0-10.0); %Lymphocytes 24.2 % (21.0-51.0); %Monocytes 7.3 % (0.0-10.0); %Neutrophils 65.1 % (42.0-75.0); Hematocrit 32.5 % (42.0-52.0); Hemoglobin 10.8 g/dL (14.0-18.0); Mean Corpuscular HGB CONC 33.2 g/dL (32.0-36.0); Mean Corpuscular Hemoglobin 28.8 pg (27.0-31.0); Mean Corpuscular Volume 86.7 fL (78.0-98.0); Mean Platelet Volume 9.1 fL (7.4-10.4); Platelet Count 600 10x3/uL (130-400); RBC Distribution Width 13.1 % (11.5-14.5); Red Blood Cell (RBC) Count 3.75 mill/uL (4.70-6.10)
[2024-11-09 07:04] LABS: Anion Gap 11 mmol/L (10-20); BUN (Urea Nitrogen) 18 mg/dL (8.9-20.6); Calc. Creatinine Clearance 164 mL/min (70-130); Calcium 8.8 mg/dL (7.8-10.44); Carbon Dioxide 24 mmol/L (22-29); Chloride 99 mmol/L (98-107); Estimated GFR 114; Glucose 219 mg/dL (70-105); Potassium 3.9 mmol/L (3.5-5.1); Sodium 130 mmol/L (136-145)
[2024-11-09] MEDS: Morphine 2 MG/ML VIAL SLOW IVP PRN (13:19)
[2024-11-09 18:10] VITALS: TEMP 98.2
== END 2024-11-09 19:50 | DRG 4 ==
LOC: ERS 16:17 → SUATTDRO 16:17 → CCU 18:48
PROVIDERS: ADMIT Internal Medicine; ATTEND Family Medicine
PROC: 4A133R1 Monitoring of Arterial Saturation, Peripheral, Percutaneous Approach (ICD-10-PCS; 2024-10-22)
PROC: XX20X89 Monitoring of Brain Electrical Activity, Computer-aided Detection and Notification, New Technology Group 9 (ICD-10-PCS; 2024-10-24)
PROC: 0B110F4 Bypass Trachea to Cutaneous with Tracheostomy Device, Open Approach (ICD-10-PCS; principal; 2024-11-06)
PROC: 0DH63UZ Insertion of Feeding Device into Stomach, Percutaneous Approach (ICD-10-PCS; 2024-11-06)
DX: I63.512 Cerebral infarction due to unspecified occlusion or stenosis of left middle cerebral artery (principal); G93.41 Metabolic encephalopathy; G93.6 Cerebral edema; J96.01 Acute respiratory failure with hypoxia; N17.9 Acute kidney failure, unspecified; G81.91 Hemiplegia, unspecified affecting right dominant side; R29.732 NIHSS score 32; F17.290 Nicotine dependence, other tobacco product, uncomplicated; E11.9 Type 2 diabetes mellitus without complications; G47.33 Obstructive sleep apnea (adult) (pediatric); I10 Essential (primary) hypertension; F15.10 Other stimulant abuse, uncomplicated; F12.10 Cannabis abuse, uncomplicated; E78.00 Pure hypercholesterolemia, unspecified; I65.22 Occlusion and stenosis of left carotid artery; R50.9 Fever, unspecified; K21.9 Gastro-esophageal reflux disease without esophagitis; Z79.899 Other long term (current) drug therapy; Z79.82 Long term (current) use of aspirin; Z79.84 Long term (current) use of oral hypoglycemic drugs; Z92.82 Status post administration of tPA (rtPA) in a different facility within the last 24 hours prior to admission to current facility; Z71.51 Drug abuse counseling and surveillance of drug abuser; Z91.148 Patient's other noncompliance with medication regimen for other reason
CPT/HCPCS: 31500; 36415; 36416; 36600; 70450; 71045; 76705; 80048; 80053; 80061; 80076; 80202; 82805; 83036; 83605; 84443; 85025; 87040; 87070; 87077; 87186; 87205; 93005; 93010; 93306; 94002; 94003; 94640; 94760; 95705; 96365; 96366; 96368; 99292; A7521; B4087; J0665; J0692; J1100; J1650; J1815; J2060; J2250; J2272; J2405; J2704; J2765; J3010; J3370; J3480; J3490; J7030; J7120